=== PATIENT | male | born 1960 | race Caucasian/White ===

== ENCOUNTER 2019-11-12 17:12 | Emergency (ER) | payer OTHER ==
[2019-11-12] MEDS ORDERED: Levalbuterol HCl 1.25 MG/0.5 ML Neb NEB ONE (17:30)
--- NOTE | 2019-11-12 17:37 | EDM.PDOC ---
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 He describes it As a pressure when trying to breathing and he said no pain just tightness and pressure. Says he has had this type of episodes before the last ones about a year ago where he came in and got some breathing treatments and inhaler and has been doing fine ever since he does not take any medications for COPD although he is been diagnosed with that and emphysema by his primary care provider. He has a 40+ pack year smoking 2 to 3 packs a day into the last year where he only smoked about 1 pack/day then quit He has no other complaints at this time states he is feeling okay now No family history of any coronary artery disease or heart issues Duration: Hour(s): Improves with: Reports: Rest Worsens with: Reports: Breathing - Related Data Allergies Allergy/AdvReac Type Severity Reaction Status Date / Time No Known Allergies Allergy Verified 11/12/19 17:23 Home Meds: Home Meds . [No Known Home Meds] 11/12/19 [History] Past Medical History Other Respiratory History: emphysema Social & Family History - Tobacco Use Smoking Status *Q: Former Smoker Used Tobacco, but Quit: Yes Month/Year Tobacco Last Used: 03/28 ED ROS GENERAL - Review of Systems Review Of Systems: See Below Constitutional: Reports: No Symptoms. Denies: Fever, Chills, Malaise, Weakness , Fatigue, Decreased Appetite HEENT: Reports: No Symptoms Respiratory: Reports: Shortness of Breath, Pleuritic Chest Pain. Denies: Wheezing, Cough Cardiovascular: Reports: No Symptoms, Other. Denies: Chest Pain, Blood Pressure Problem, Claudication, Dyspnea on Exertion, Edema, Lightheadedness, Orthopnea, Palpitations, PND, Syncope Endocrine: Reports: No Symptoms GI/Abdominal: Reports: No Symptoms : Reports: No Symptoms Musculoskeletal: Reports: No Symptoms Skin: Reports: No Symptoms Neurological: Reports: No Symptoms Psychiatric: Reports: No Symptoms Hematologic/Lymphatic: Reports: No Symptoms Immunologic: Reports: No Symptoms ED EXAM, GENERAL - Physical Exam Exam: See Below Exam Limited By: No Limitations General Appearance: Alert, WD/WN, No Apparent Distress Nose: Normal Inspection, Normal Mucosa, No Blood Throat/Mouth: Normal Inspection, Normal Lips, Normal Teeth, Normal Gums, Normal Oropharynx, Normal Voice, No Airway Compromise, Other (Patient talking 15-20 word sentences no respiratory distress) Neck: Normal Inspection, Supple, Non-Tender, Full Range of Motion Respiratory/Chest: No Respiratory Distress, Normal Breath Sounds, No Accessory Muscle Use, Chest Non-Tender, Other (Mild end expiratory wheezing of the upper lobes bilateral) Cardiovascular: Normal Peripheral Pulses, Regular Rate, Rhythm, No Edema, No Gallop, No JVD, No Murmur, No Rub GI/Abdominal: Normal Bowel Sounds, Soft, Non-Tender, No Organomegaly, No Distention Extremities: Normal Inspection, Normal Range of Motion, Non-Tender, No Pedal Edema Neurological: Alert, Oriented, CN II-XII Intact, Normal Cognition, Normal Gait, No Motor/Sensory Deficits Psychiatric: Normal Affect, Normal Mood Skin Exam: Warm, Dry, Intact, Normal Color, No Rash Course - Vital Signs Text/Narrative:: CBC BMP troponin chest x-ray EKG patient will be given a Xopenex jet nebulizer treatment Patient was rechecked states he feels a lot better after nebulizer patient was rechecked negative wheezing All lab work was within normal limits chest x-ray no acute findings Patient will be given albuterol inhaler to take home 1 to 2 puffs every 4-6 hours as needed Patient was given prednisone 40 mg 1 tab p.o. daily x3 days discharged from here with medication Last Recorded V/S: Last Vital Signs Temp 36.6 C 11/12/19 17:12 Pulse 91 11/12/19 17:12 Resp 20 11/12/19 17:12 BP 143/84 H 11/12/19 17:12 Pulse Ox 92 L 11/12/19 17:12 - Orders/Labs/Meds Orders: Active Orders 24 hr Category Date Time Status EKG 12 Lead [EKG Documentation Completion] [RC] STAT Care 11/12/19 17:38 Active RT Aerosol Therapy [RC] ASDIRECTED Care 11/12/19 17:30 Active Albuterol [Take Home: Albuterol 18 GM, 1 INH Pack] Med 11/12/19 18:36 Ordered 1 packet INH Q4H PRN predniSONE [Take Home: predniSONE 20 MG, 2 Tab Pack] Med 11/12/19 18:37 Once 3 packet PO ONETIME ONE Medication Orders Albuterol (Take Home: Albuterol 18 Gm, 1 Inh Pack) 1 packet INH Q4H PRN PRN Reason: Shortness of Breath Labs: Laboratory Tests 11/12/19 11/12/19 Range/Units 17:58 17:58 WBC 12.6 H (4.0-10.0) x10^3/uL RBC 5.51 (4.5-6.0) x10^6/uL Hgb 17.0 (14.0-18.0) g/dL Hct 48.7 (40.0-52.0) % MCV 88.4 (78.0-93.0) fL MCH 30.9 (26.0-32.0) pg MCHC 34.9 (32.0-36.0) g/dL RDW Coeff of [place] 12.0 (10.0-15.0) % Plt Count 243 (130-400) x10^3/uL Neut % (Auto) 68.0 (50.0-80.0) % Lymph % (Auto) 22.3 L (25.0-50.0) % [place] % (Auto) 7.0 (2.0-11.0) % Eos % (Auto) 2.2 (0.0-4.0) % Baso % (Auto) 0.5 (0.2-1.2) % Sodium 143 (136-145) mmol/L Potassium 3.9 (3.5-5.1) mmol/L Chloride 104 (98-107) mmol/L Carbon Dioxide 28 (21-32) mmol/L Anion Gap 14.9 (10-20) mmol/L BUN 23 H (7-18) mg/dL Creatinine 1.6 H (0.70-1.30) mg/dL Est Cr Clr Drug Dosing TNP Estimated GFR (MDRD) 45 Glucose 91 (74-106) mg/dL Calcium 9.1 (8.5-10.1) mg/dL Troponin I < 0.017 (<=0.056) ng/mL Meds: Medications Generic Name Dose Route Start Last Admin Trade Name Freq PRN Reason Stop Dose Admin Albuterol 1 packet 11/12/19 18:36 Take Home: Albuterol 18 Gm, 1 Inh Pack INH Q4H PRN Shortness of Breath Discontinued Medications Generic Name Dose Route Start Last Admin Trade Name Freq PRN Reason Stop Dose Admin Levalbuterol HCl 1.25 mg 11/12/19 17:30 11/12/19 17:37 Xopenex NEB 11/12/19 17:31 1.25 mg ONETIME ONE Administration Departure - Departure Time of Disposition: 18:30 Disposition: Home, Self-Care 01 Condition: Good Clinical Impression: SOB (shortness of breath) - Discharge Information *PRESCRIPTION DRUG MONITORING PROGRAM REVIEWED*: No *COPY OF PRESCRIPTION DRUG MONITORING REPORT IN PATIENT PANKAJ: No Instructions: Shortness of Breath, Adult, [id number] Referrals: [place] MD [Primary Care Provider] - Forms: ED Department Discharge Additional Instructions: Use the albuterol inhaler 1 to 2 puffs every 4-6 hours as needed for shortness of breath Remember to wash your mouth out after each use of the inhaler Follow-up with your primary doctor in the next 24 to 48 hours Return to the emergency room if anything changes or gets worse Finish prednisone as directed 40 mg each day for 3 days Sepsis Event Note - Evaluation Sepsis Screening Result: No Definite Risk - Focused Exam Vital Signs: Vital Signs Temp Pulse Resp BP Pulse Ox 11/12/19 17:12 36.6 C 91 20 143/84 H 92 L Date Exam was Performed: 11/12/19 Time Exam was Performed: 18:37 - Problem List & Annotations (1) SOB (shortness of breath) SNOMED Code(s): 678452533 Code(s): R06.02 - SHORTNESS OF BREATH Status: Acute Current Visit: Yes - My Orders Last 24 Hours: My Active Orders 11/12/19 17:30 RT Aerosol Therapy [RC] ASDIRECTED 11/12/19 17:38 EKG 12 Lead [EKG Documentation Completion] [RC] STAT 11/12/19 18:36 Albuterol [Take Home: Albuterol 18 GM, 1 INH Pack] 1 packet INH Q4H PRN 11/12/19 18:37 predniSONE [Take Home: predniSONE 20 MG, 2 Tab Pack] 3 packet PO ONETIME ONE - Assessment/Plan Last 24 Hours: My Active Orders 11/12/19 17:30 RT Aerosol Therapy [RC] ASDIRECTED 11/12/19 17:38 EKG 12 Lead [EKG Documentation Completion] [RC] STAT 11/12/19 18:36 Albuterol [Take Home: Albuterol 18 GM, 1 INH Pack] 1 packet INH Q4H PRN 11/12/19 18:37 predniSONE [Take Home: predniSONE 20 MG, 2 Tab Pack] 3 packet PO ONETIME ONE
--- NOTE | 2019-11-12 18:09 | CR ---
[id number] RAD/RAD Chest PA And Lateral EXAM: RAD Chest PA And Lateral INDICATION: SHORTNESS OF BREATH. COMPARISON: None. DISCUSSION: Cardiomediastinal silhouette is normal in size and contour. No infiltrate, effusion, pneumothorax, or edema. Bilateral symmetric lung hyperinflation with flattening of the hemidiaphragms. Findings are nonspecific but can be seen with chronic obstructive pulmonary disease. IMPRESSION: No acute findings in the chest. Other findings are described above. Keith Miranda MD 11/12/19 [id number] Thank you for allowing us to participate in the care of your patient.
[2019-11-12 18:29] LABS: CHLORIDE,CL 104 mmol/L (98-107); SODIUM,NA 143 mmol/L (136-145)
[2019-11-12 18:31] LABS: ANION GAP 14.9 mmol/L (10-20)
[2019-11-12] MEDS ORDERED: Take Home: Albuterol 18 GM Inhaler, 1 Inhaler Pack INH PRN (18:36)
[2019-11-12] MEDS ORDERED: Take Home: predniSONE 20 MG, 2 Tab Pack PO ONE (18:37)
== END 2019-11-12 18:54 | disposition home or self-care (01) ==
LOC: VM.ED 17:12
DX: R06.02 Shortness of breath (principal); Z87.891 Personal history of nicotine dependence
CPT/HCPCS: 36415; 71046; 80048; 84484; 85025; 93005; 94640; 99285; A9270